=== PATIENT | female | born 1965 | race Caucasian/White ===

== ENCOUNTER 2022-07-23 16:13 | Emergency (ER) | payer OTHER ==
[~2022-07-23] VITALS: Ht 152.4 cm; Wt 65.9 kg
[2022-07-23] MEDS ORDERED: TraMADol HCL 50 MG TABLET PO ONE (17:30)
[2022-07-23] MEDS ORDERED: TRAM-559 PO (18:33)
[2022-07-23 18:50] VITALS: BP 142/92
== END 2022-07-23 19:07 | disposition home or self-care (01) ==
LOC: EMS 16:14
DX: S83.91XA Sprain of unspecified site of right knee, initial encounter (principal); S93.401A Sprain of unspecified ligament of right ankle, initial encounter; I10 Essential (primary) hypertension; Z98.890 Other specified postprocedural states; W18.31XA Fall on same level due to stepping on an object, initial encounter; Y93.89 Activity, other specified; Y92.89 Other specified places as the place of occurrence of the external cause; Y99.8 Other external cause status
CPT/HCPCS: 29540; 99284; 73562-TC; 73590-TC; 73610-TC; Z7502; Z7610